=== PATIENT | female | born 1955 | race Caucasian/White ===

== ENCOUNTER → 2016-05-11 | Outpatient (CLI) | payer OTHER ==
[~2016-05-11] MED LIST: BIOTCAP PO; CALC1TAB55 PO; LEVO.075 PO; MULTCHW27 PO
[2016-05-11 10:14] LABS: AUTOMATED NEUTROPHIL # 3.2 TH/MM3 (1.8-7.7); BASOPHIL % 0.6 % (0.0-2.0); EOSINOPHIL # 0.1 TH/MM3 (0-0.4); HEMATOCRIT 42.2 % (35.0-46.0); HEMO FLAGS DIFF FINAL; LYMPH % 15.7 % (9.0-44.0); LYMPHOCYTE # 0.7 TH/MM3 (1.0-4.8); MEAN CELL VOLUME 91.1 FL (80.0-100.0); MEAN CORPUSCULAR HEMOGLOBIN 30.6 PG (27.0-34.0); MEAN CORPUSCULAR HGB CONC 33.6 % (32.0-36.0); MONO % 9.3 % (0.0-8.0); NEUT % 72.4 % (16.0-70.0); PLATELET COUNT 244 TH/MM3 (150-450); RED BLOOD COUNT 4.63 MIL/MM3 (4.00-5.30); RED CELL DISTRIBUTION WIDTH 13.3 % (11.6-17.2); WHITE BLOOD COUNT 4.4 TH/MM3 (4.0-11.0)
[2016-05-11 10:47] LABS: BICARBONATE 29.6 MEQ/L (21.0-32.0)
[2016-05-11 11:01] LABS: BLOOD, URINE SMALL (NEG); GLUCOSE,URINE NEG (NEG); KETONE, URINE NEG (NEG); MUCUS URINE FEW /lpf (OCC); NITRITE,URINE NEG (NEG); PH, URINE 5.5 (5.0-8.5); SQUAMOUS EPITHELIAL CELL URINE 3 /hpf (0-5); URINE COLOR YELLOW (YELLW/STRAW)
--- NOTE | 2016-05-11 11:11 | RADRPT ---
EXAM DATE/TIME: 05/11/2016 10:18 [place] COMPARISON: No previous studies available for comparison. INDICATIONS : Pre op for hysteroscopy. MEDICAL HISTORY : None. SURGICAL HISTORY : None. ENCOUNTER: Initial ACUITY: 1 day PAIN SCORE: 0/10 LOCATION: Bilateral upper chest FINDINGS: PA and lateral views of the chest demonstrate the lungs to be symmetrically aerated without evidence of mass, infiltrate or effusion. The cardiomediastinal contours are unremarkable. Osseous structure s are intact. CONCLUSION: No acute disease. Mg Jones MD FACR on May 11, 2016 at 11:09 Board Certified Radiologist. This report was verified electronically.
--- NOTE | 2016-05-12 17:07 | EKG ---
Date Performed: 05/11/2016 Time Performed: 09:53:21 PTAGE: 60 years EKG: Sinus rhythm POSSIBLE LEFT ATRIAL ENLARGEMENT BORDERLINE ECG NO PREVIOUS TRACING DOCTOR: Myles Rice Interpretating Date/Time 05/12/2016 17:02:43
== END ==
LOC: CPRE 09:26
PROVIDERS: ATTEND Obstetrics & Gynecology
DX: Z01.810 Encounter for preprocedural cardiovascular examination (principal); Z01.811 Encounter for preprocedural respiratory examination; Z01.812 Encounter for preprocedural laboratory examination; N95.0 Postmenopausal bleeding
CPT/HCPCS: 36415; 71020; 80048; 81001; 85025; 93005

== ENCOUNTER → 2016-05-19 | Day surgery (SDC) | payer OTHER ==
[~2016-05-19] VITALS: Ht 167.6 cm; Wt 58.1 kg
[~2016-05-19] MED LIST changes: +*MEPERIDINE 25 MG INJ VIAL PERIprocedural Use ONLY ONE; +DEXAMETHASONE SOD PHOS 4 MG/ML VIAL ONE; +DO NOT ADM ANY ANTICOAGULANT DRUGS XX PRN; +FAMOTIDINE 20 MG/2 ML VIAL ONE; +INSULIN HUMAN REGULAR 1,000 UNITS/10 ML VIAL SQ PRN; +KETOROLAC TROMETHAMINE 30 MG/ML (IVP) VIAL ONE; +KETOROLAC TROMETHAMINE 60 MG/2 ML (IM) VIAL IM PRN; +LACTATED RINGER'S 1000 ML IV SCH; +METOPROLOL TARTRATE 25 MG TAB PO PRN; +MIDAZOLAM HCL 2 MG/2 ML VIAL ONE; +ONDANSETRON HCL 4 MG/2 ML VIAL IV PUSH ONE; +ONDANSETRON HCL 4 MG/2 ML VIAL IV PUSH PRN; +PROPOFOL 200 MG/20 ML AMP IV ONE; +SODIUM CHLORID 0.9% 500 ML IV SCH; +ceFAZolin 2 GM PREMIX 50 ML IV SCH; +fentaNYL CITRATE 250 MCG/5 ML AMP ONE; +oxyCODONE/ACETAMINOPHEN 5 MG/325 MG TAB PO PRN
[2016-05-19 06:58] VITALS: BP 114/69; PULSE 68; RESP 16; TEMP 98.6; O2SAT 99
[2016-05-19 10:45] VITALS: BP 115/63; PULSE 67; RESP 16; TEMP 97.7; O2SAT 99
--- NOTE | 2016-05-20 15:42 | MP ---
cc: TARAS LESTER MD DATE OF SURGERY: 05/19/2016 PREOPERATIVE DIAGNOSIS: Postmenopausal bleeding, thickened endometrium, stenotic cervix. POSTOPERATIVE DIAGNOSIS Postmenopausal bleeding, thickened endometrium, stenotic cervix. PROCEDURE Examination under anesthesia, hysteroscopy. SURGEON Dr. Lester ANESTHESIA General anesthesia. FLUIDS: 300 cc crystalloid ESTIMATED BLOOD LOSS Minimal. URINE OUTPUT: 150 cc clear yellow on straight cath prior to procedure. FINDINGS Uterus was between 6 and 8 weeks on examination, no adnexal masses were palpable. PROCEDURE The patient was taken to the operating room where general anesthesia was found be adequate. She was then prepped and draped in the normal sterile fashion in the dorsal lithotomy position. The urinary bladder was emptied of urine using sterile technique. A weighted speculum was placed in the vagina. Single-tooth tenaculum applied to the anterior lip of the cervix. The cervix was then gently dilated with Hegar dilators up to a size 6. The uterus sounded to approximately 6 cm. The MyoSure device and scope were then inserted into the cervix and the endometrial cavity was not visualized despite adequate fluid distension. The MyoSure scope was then removed. A smaller diagnostic hysteroscope was then attempted to be placed to the fundus of the uterus and a small perforation was noted. The hysteroscope was removed. Hemostasis was noted. The tenaculum was removed again, hemostasis was noted. The weighted speculum was removed. The patient was awakened from anesthesia and transferred to recovery room in stable condition. Sponge, lap, needle and instrument counts were correct and there was no pathological specimen. ADDENDUM Fluids in 3012 cc, fluids out 1927 cc, with a fluid deficit of 1085 cc. MD LAW Parks/BELINDA /9:32 AM /3:49 PM
== END | disposition home or self-care (01) ==
LOC: HSDC 06:12
PROVIDERS: ATTEND Obstetrics & Gynecology
DX: N95.0 Postmenopausal bleeding (principal); R93.8 Abnormal findings on diagnostic imaging of other specified body structures; N88.2 Stricture and stenosis of cervix uteri
CPT/HCPCS: 00952; 58555; 86850; 86900; 86901; J0690; J1100; J1885; J2175; J2250; J2405; J3010; J7120

== ENCOUNTER → 2016-06-03 | Outpatient (CLI) | payer OTHER ==
[~2016-06-03] MED LIST changes: -*MEPERIDINE 25 MG INJ VIAL PERIprocedural Use ONLY ONE; -DEXAMETHASONE SOD PHOS 4 MG/ML VIAL ONE; -DO NOT ADM ANY ANTICOAGULANT DRUGS XX PRN; -FAMOTIDINE 20 MG/2 ML VIAL ONE; -INSULIN HUMAN REGULAR 1,000 UNITS/10 ML VIAL SQ PRN; -KETOROLAC TROMETHAMINE 30 MG/ML (IVP) VIAL ONE; -KETOROLAC TROMETHAMINE 60 MG/2 ML (IM) VIAL IM PRN; -LACTATED RINGER'S 1000 ML IV SCH; -METOPROLOL TARTRATE 25 MG TAB PO PRN; -MIDAZOLAM HCL 2 MG/2 ML VIAL ONE; -ONDANSETRON HCL 4 MG/2 ML VIAL IV PUSH ONE; -ONDANSETRON HCL 4 MG/2 ML VIAL IV PUSH PRN; -PROPOFOL 200 MG/20 ML AMP IV ONE; -SODIUM CHLORID 0.9% 500 ML IV SCH; -ceFAZolin 2 GM PREMIX 50 ML IV SCH; -fentaNYL CITRATE 250 MCG/5 ML AMP ONE; -oxyCODONE/ACETAMINOPHEN 5 MG/325 MG TAB PO PRN
[2016-06-03 11:05] LABS: AUTOMATED NEUTROPHIL # 2.4 TH/MM3 (1.8-7.7); BASOPHIL % 0.7 % (0.0-2.0); EOSINOPHIL # 0.1 TH/MM3 (0-0.4); EOSINOPHIL % 2.4 % (0.0-4.0); HEMATOCRIT 41.2 % (35.0-46.0); HEMO FLAGS DIFF FINAL; LYMPH % 34.5 % (9.0-44.0); LYMPHOCYTE # 1.6 TH/MM3 (1.0-4.8); MEAN CELL VOLUME 90.9 FL (80.0-100.0); MEAN CORPUSCULAR HEMOGLOBIN 31.1 PG (27.0-34.0); MEAN CORPUSCULAR HGB CONC 34.3 % (32.0-36.0); MONO % 9.1 % (0.0-8.0); NEUT % 53.3 % (16.0-70.0); PLATELET COUNT 267 TH/MM3 (150-450); RED BLOOD COUNT 4.54 MIL/MM3 (4.00-5.30); RED CELL DISTRIBUTION WIDTH 13.3 % (11.6-17.2); WHITE BLOOD COUNT 4.6 TH/MM3 (4.0-11.0)
[2016-06-03 11:10] LABS: BACTERIA, URINE RARE /hpf; BLOOD, URINE TRACE (NEG); GLUCOSE,URINE NEG (NEG); KETONE, URINE NEG (NEG); NITRITE,URINE NEG (NEG); PH, URINE 5.5 (5.0-8.5); SQUAMOUS EPITHELIAL CELL URINE 1 /hpf (0-5); URINE COLOR LIGHT-YELLOW (YELLW/STRAW)
[2016-06-03 11:26] LABS: BICARBONATE 29.8 MEQ/L (21.0-32.0); POTASSIUM 3.9 MEQ/L (3.5-5.1)
== END ==
LOC: CPRE 10:17
PROVIDERS: ATTEND Obstetrics & Gynecology
DX: Z01.812 Encounter for preprocedural laboratory examination (principal); N95.0 Postmenopausal bleeding
CPT/HCPCS: 36415; 80048; 81001; 85025

== ENCOUNTER → 2016-06-09 | Day surgery (SDC) | payer OTHER ==
[~2016-06-09] VITALS: Ht 167.6 cm; Wt 56.9 kg
[~2016-06-09] MED LIST changes: +*MEPERIDINE 25 MG INJ VIAL PERIprocedural Use ONLY ONE; +ACETAMINOPHEN 1000 MG/100 ML VIAL IV ONE; +APREPITANT 40 MG CAP ONE; +BUPIVACAINE HCL PF 0.25% 10 ML VIAL INFIL ONE; +DEXAMETHASONE SOD PHOS 4 MG/ML VIAL ONE; +DO NOT ADM ANY ANTICOAGULANT DRUGS XX PRN; +FAMOTIDINE 20 MG/2 ML VIAL ONE; +HYDROmorphone HCL PF 2 MG/ML VIAL ONE; +IBUPROFEN 600 MG TAB PO ONE; +INSULIN HUMAN REGULAR 1,000 UNITS/10 ML VIAL SQ PRN; +KETOROLAC TROMETHAMINE 30 MG/ML (IVP) VIAL IM PRN; +KETOROLAC TROMETHAMINE 60 MG/2 ML (IM) VIAL IM ONE; +LACTATED RINGER'S 1000 ML INJ 1,000 ML IV ONE; +LACTATED RINGER'S 1000 ML IV SCH; +METOPROLOL TARTRATE 25 MG TAB PO PRN; +MIDAZOLAM HCL 2 MG/2 ML VIAL ONE; +ONDANSETRON HCL 4 MG/2 ML VIAL IV PUSH ONE; +ONDANSETRON HCL 4 MG/2 ML VIAL IV PUSH PRN; +PROPOFOL 200 MG/20 ML AMP IV ONE; +SODIUM CHLORID 0.9% 500 ML IV SCH; +ceFAZolin 2 GM PREMIX 50 ML IV SCH; +ePHEDrine/NS 25 MG/5 ML SYR IV ONE; +fentaNYL CITRATE 250 MCG/5 ML AMP ONE; +oxyCODONE/ACETAMINOPHEN 5 MG/325 MG TAB PO PRN
[2016-06-09 06:57] VITALS: BP 141/78; PULSE 51; RESP 20; TEMP 98.1; O2SAT 100
[2016-06-09 11:20] VITALS: TEMP 97.5
[2016-06-09 11:55] VITALS: BP 111/60; PULSE 52; RESP 20; O2SAT 100
--- NOTE | 2016-06-10 08:37 | MP ---
cc: TARAS EATON MD DATE OF SURGERY 06/09/2016. PREOPERATIVE DIAGNOSES 1. Thickened endometrium. 2. Postmenopausal bleeding. 3. Stenotic cervix POSTOPERATIVE DIAGNOSES 1. Thickened endometrium. 2. Postmenopausal bleeding. 3. Stenotic cervix PROCEDURE Examination under anesthesia, laparoscopic-assisted vaginal hysterectomy, bilateral salpingo-oophorectomy, cystoscopy. SURGEON Dr. Eaton [facility] [employer] Marj Mckee ANESTHESIA General endotracheal anesthesia, Dr. Ding. FLUIDS 1600 cc crystalloid ESTIMATED BLOOD LOSS 150 cc. URINE OUTPUT 700 cc clear yellow at the end of the procedure. FINDINGS The uterus was extremely retroverted, retroflexed. Normal-appearing fallopian tubes and ovaries. Frozen section reported as benign. PROCEDURE The patient was taken to the operating room where general anesthesia was found to be adequate. She was then prepped and draped in the normal sterile fashion in the dorsal lithotomy position. The Vazquez catheter was inserted into the urinary bladder using sterile technique. A weighted speculum was placed in the vagina, a single-tooth tenaculum applied to the anterior lip of the cervix. A suture was placed through the anterior lip of the cervix and the tenaculum was removed. The cervix was gently dilated with Kwame dilators and a medium V-CARE uterine manipulator was placed, the balloon was inflated. The cups were positioned vaginally. The weighted speculum was removed. The gloves were changed and attention was turned to the abdominal portion of the procedure. A 5-mm incision was made just above the umbilicus and a 5-mm trocar and camera were inserted into the abdominal cavity under direct visualization. The abdomen was insufflated with approximately 3.5 liters of CO2 gas. Two additional 5-mm incisions and trocars were placed in the right and left lower quadrants under direct visualization. The uterus at this time was noted to be extremely retroflexed. Previous perforation was noted anteriorly above vesicouterine reflection. The round ligaments were transected bilaterally with the harmonic scalpel. The bladder was dissected off of the anterior surface of the uterus and cervix using the harmonic scalpel. The infundibulopelvic ligaments were transected with the harmonic scalpel bilaterally. The broad ligaments, cardinal ligaments, uterine arteries were transected bilaterally with the harmonic scalpel. The Deep Driver-CARE uterine manipulator was used to direct the incision vaginally with the harmonic scalpel circumferentially around the cervix. The cervix, uterus, fallopian tubes and ovaries were then removed vaginally and sent to pathology for frozen section which was reported as benign. Hemostasis was noted from all pedicles. The ureters were peristalsing bilaterally transperitoneal. Denise was placed over the raw surfaces in the pelvis. The gas was allowed to escape. The trocars and instruments were removed. The skin incisions were closed with 4-0 Monocryl. The vaginal cuff was closed with a running suture of 0 Vicryl vaginally. Hemostasis was assured. Vaginal packing was placed. The Vazquez catheter was used to instill approximately 200 cc of saline into the urinary bladder. The Vazquez catheter was removed. Cystoscopy was performed and urine was noted to be effluxing from both of the ureteral meatuses. The cystoscope was removed. The Vazquez catheter was replaced. The sponge, lap, needle and instrument counts were correct. The patient was awakened from anesthesia and transferred to the recovery room in stable condition. MD LAW Parks/ASH /10:20 AM /8:21 AM PAULETTE
== END | disposition home or self-care (01) ==
LOC: HSDC 05:59
PROVIDERS: ATTEND Obstetrics & Gynecology
DX: N95.0 Postmenopausal bleeding (principal); N88.2 Stricture and stenosis of cervix uteri; R93.8 Abnormal findings on diagnostic imaging of other specified body structures
CPT/HCPCS: 00840; 58552; 86850; 86900; 86901; 88309; 88331; J0131; J0690; J1100; J1885; J2175; J2250; J2405; J3010; J7120; J8501; 88307; J1170

== ENCOUNTER → 2016-07-07 | Outpatient (CLI) | payer OTHER ==
[~2016-07-07] VITALS: Ht 170.2 cm; Wt 53.3 kg
[~2016-07-07] MED LIST changes: -*MEPERIDINE 25 MG INJ VIAL PERIprocedural Use ONLY ONE; -ACETAMINOPHEN 1000 MG/100 ML VIAL IV ONE; -APREPITANT 40 MG CAP ONE; -BUPIVACAINE HCL PF 0.25% 10 ML VIAL INFIL ONE; +CHLORHEXIDINE GLUCONATE 2 % 1 PACK (2 CLOTHS) TOPICAL PRN; -DEXAMETHASONE SOD PHOS 4 MG/ML VIAL ONE; -DO NOT ADM ANY ANTICOAGULANT DRUGS XX PRN; -FAMOTIDINE 20 MG/2 ML VIAL ONE; -HYDROmorphone HCL PF 2 MG/ML VIAL ONE; -IBUPROFEN 600 MG TAB PO ONE; -KETOROLAC TROMETHAMINE 30 MG/ML (IVP) VIAL IM PRN; -KETOROLAC TROMETHAMINE 60 MG/2 ML (IM) VIAL IM ONE; -LACTATED RINGER'S 1000 ML INJ 1,000 ML IV ONE; +LACTATED RINGER'S 1000 ML IV PRN; -LACTATED RINGER'S 1000 ML IV SCH; -MIDAZOLAM HCL 2 MG/2 ML VIAL ONE; -ONDANSETRON HCL 4 MG/2 ML VIAL IV PUSH ONE; -ONDANSETRON HCL 4 MG/2 ML VIAL IV PUSH PRN; +POVIDONE IODINE 5% (ANTISEPSIS KIT) 4 APPLICATIONS EACH NARE PRN; +SODIUM CHLORID 0.9% 500 ML IV PRN; -SODIUM CHLORID 0.9% 500 ML IV SCH; -ceFAZolin 2 GM PREMIX 50 ML IV SCH; -ePHEDrine/NS 25 MG/5 ML SYR IV ONE; -fentaNYL CITRATE 250 MCG/5 ML AMP ONE; -oxyCODONE/ACETAMINOPHEN 5 MG/325 MG TAB PO PRN
[2016-07-07 09:21] VITALS: BP 143/76; PULSE 65; RESP 20; TEMP 97.6; O2SAT 100
[2016-07-07 11:19] VITALS: TEMP 97.5
[2016-07-07 11:31] VITALS: BP 114/69; PULSE 60; RESP 18; O2SAT 100
== END ==
LOC: HEND 08:35
DX: K57.90 Diverticulosis of intestine, part unspecified, without perforation or abscess without bleeding (principal)

== ENCOUNTER → 2016-08-11 | Outpatient (CLI) | payer OTHER ==
[~2016-08-11] MED LIST changes: -CHLORHEXIDINE GLUCONATE 2 % 1 PACK (2 CLOTHS) TOPICAL PRN; -INSULIN HUMAN REGULAR 1,000 UNITS/10 ML VIAL SQ PRN; -LACTATED RINGER'S 1000 ML IV PRN; -METOPROLOL TARTRATE 25 MG TAB PO PRN; -POVIDONE IODINE 5% (ANTISEPSIS KIT) 4 APPLICATIONS EACH NARE PRN; -PROPOFOL 200 MG/20 ML AMP IV ONE; -SODIUM CHLORID 0.9% 500 ML IV PRN
[2016-08-11 12:23] LABS: FREE T4 1.2 NG/DL (0.76-1.46)
== END ==
LOC: ELAB 09:55
DX: E03.9 Hypothyroidism, unspecified (principal)
CPT/HCPCS: 36415; 84439; 84443

== ENCOUNTER → 2017-08-23 | Outpatient (CLI) | payer OTHER ==
[2017-08-23 13:03] LABS: FREE T3 2.53 PG/ML (2.18-3.98); FREE T4 1.1 NG/DL (0.76-1.46)
== END ==
LOC: ELAB 09:56
PROVIDERS: ATTEND Family Medicine
DX: E03.9 Hypothyroidism, unspecified (principal)
CPT/HCPCS: 36415; 84439; 84443; 84481